=== PATIENT | male | born 1970 | race Caucasian/White ===

== ENCOUNTER → 2016-10-03 | Outpatient (CLI) | payer BC ==
--- NOTE | 2016-10-03 11:03 | RADRPT ---
PROCEDURE: XR Lumbar Spine. CLINICAL INDICATION: Low back pain. TECHNIQUE: 3 views of the lumbar spine are available for review COMPARISON: None available FINDINGS: There is mild lumbar spondylosis. The vertebral bodies are otherwise normal in mineralization, archi tecture and alignment. No fractures or osseous lesions are identified. There is no evidence of sub luxation. The disk spaces are unremarkable. The facet joints are unremarkable. Soft tissues are unr emarkable. IMPRESSION: Mild lumbar spondylosis RPTAT: [facility] .Elbert Walden MD, MD Date Time Electronically viewed and signed by .Elbert Walden MD, on 10/03/2016 11:03 .B/
== END | disposition home or self-care (01) ==
LOC: RAD 09:45
PROVIDERS: ATTEND Internal Medicine
DX: S33.5XXD Sprain of ligaments of lumbar spine, subsequent encounter (principal); M47.896 Other spondylosis, lumbar region
CPT/HCPCS: 72100

== ENCOUNTER → 2018-04-21 | Outpatient (CLI) | END | disposition home or self-care (01) ==

== ENCOUNTER → 2019-04-09 | Outpatient (CLI) | payer BC | END | disposition home or self-care (01) | LOC: LAB 09:18 | PROVIDERS: ATTEND Internal Medicine | DX: E78.5 Hyperlipidemia, unspecified (principal); R73.03 Prediabetes | CPT/HCPCS: 80053; 80061; 83036; 85025 ==